=== PATIENT | male | born 1950 | race Caucasian/White ===

== ENCOUNTER 2022-01-25 18:29 | Emergency (ER) | payer MEDICARE ==
[2022-01-25 19:45] LABS: #Eosinphils 0.1 thou/uL (0.0-0.7); #Lymphocytes 1.7 thou/uL (1.20-3.40); #Monocytes 0.8 thou/uL (0.11-0.59); #Neutrophils 3.7 thou/uL (1.40-6.50); %Basophils 0.5 % (0.0-1.0); %Eosinophils 1.1 % (0.0-10.0); %Lymphocytes 27.1 % (21.0-51.0); %Monocytes 12.1 % (0.0-10.0); %Neutrophils 59.2 % (42.0-75.0); Hemoglobin 14.7 g/dL (14.0-18.0); Mean Corpuscular HGB CONC 33.1 g/dL (32.0-36.0); Mean Corpuscular Hemoglobin 32.1 pg (27.0-31.0); Mean Corpuscular Volume 96.9 fL (78.0-98.0); Platelet Count 228 thou/uL (130-400); RBC Distribution Width 11.3 % (11.5-14.5); White Blood Cell (WBC) Count 6.3 thou/uL (4.8-10.8)
[2022-01-25 20:08] LABS: ALT (SGPT) 18 U/L (8-55); AST (SGOT) 21 U/L (5-34); Albumin 4.2 g/dL (3.4-4.8); Alkaline Phosphatase 61 U/L (40-110); Anion Gap 13 mmol/L (10-20); BUN (Urea Nitrogen) 24 mg/dL (8.4-25.7); Bilirubin, Total 0.6 mg/dL (0.2-1.2); Calc. Creatinine Clearance 0 mL/min (70-130); Carbon Dioxide 26 mmol/L (23-31); Chloride 102 mmol/L (98-107); Globulin 2.6 g/dL (2.4-3.5); Glucose 125 mg/dL (80-115); Potassium 4.3 mmol/L (3.5-5.1); Protein, Total 6.8 g/dL (5.8-8.1); Sodium 137 mmol/L (136-145)
[2022-01-26 16:27] LABS: SARS-CoV-2 PCR by NAA Not Detected (NotDetected)
== END 2022-01-25 20:56 | disposition home or self-care (01) ==
LOC: ERS 18:29
DX: R06.02 Shortness of breath (principal); I45.4 Nonspecific intraventricular block; M41.9 Scoliosis, unspecified; F17.200 Nicotine dependence, unspecified, uncomplicated; Z20.822 Contact with and (suspected) exposure to COVID-19; Z79.82 Long term (current) use of aspirin; Z79.899 Other long term (current) drug therapy
CPT/HCPCS: 71045; 80053; 84484; 85025; 93005; U0003; U0005; 36415

== ENCOUNTER 2022-07-14 09:35 | Outpatient (CLI) | payer MEDICARE | END 2022-07-14 09:36 | disposition home or self-care (01) | LOC: MRI 09:35 | PROVIDERS: ATTEND Nurse Practitioner Family | DX: M41.116 Juvenile idiopathic scoliosis, lumbar region (principal); M41.24 Other idiopathic scoliosis, thoracic region; M48.07 Spinal stenosis, lumbosacral region; M89.38 Hypertrophy of bone, other site | CPT/HCPCS: 72146; 72148 ==

== ENCOUNTER 2023-06-30 18:34 | Emergency (ER) | payer MEDICARE ==
[2023-06-30 19:51] LABS: SARS-CoV-2 NAA Rapid Test DETECTED (NotDetected)
== END 2023-06-30 19:06 | disposition home or self-care (01) ==
LOC: ERS 18:34
DX: U07.1 COVID-19 (principal); E78.5 Hyperlipidemia, unspecified; I10 Essential (primary) hypertension; Z79.899 Other long term (current) drug therapy; Z20.822 Contact with and (suspected) exposure to COVID-19; Z79.82 Long term (current) use of aspirin
CPT/HCPCS: 99283

== ENCOUNTER 2025-07-25 10:51 | Outpatient (CLI) | payer MEDICARE | END 2025-07-25 10:52 | disposition home or self-care (01) | LOC: RAD 10:51 | PROVIDERS: ATTEND Internal Medicine Critical Care Medicine | DX: R06.00 Dyspnea, unspecified (principal) | CPT/HCPCS: 71046 ==